=== PATIENT | male | born 1985 | race African-American/Black ===

== ENCOUNTER 2018-07-24 12:54 | Inpatient (IN) | payer SELFPAY ==
[~2018-07-24] VITALS: Ht 172.7 cm; Wt 107.5 kg
[2018-07-24 18:44] LABS: CHLORIDE 102 mEq/L (98-107)
[2018-07-24] MEDS ORDERED: ASPIRIN 325MG EC TABLET PO ONE (18:45)
[2018-07-24 18:56] LABS: BASOPHILS % 0.9 % (0.0-2.0); EOSINOPHILS % 2.5 % (0.0-5.0); HEMATOCRIT. 45.3 % (42.0-52.0); HEMOGLOBIN. 15.2 g/dL (14.0-18.0); LYMPHOCYTES % 34.2 % (20.0-50.0); MEAN CORPUSCULAR HEMOGLOBIN 27.8 pg (28.0-32.0); MEAN CORPUSCULAR VOLUME 83.1 fL (80.0-94.0); MEAN PLATELET VOLUME 9.1 fl (7.4-10.4); MONOCYTES % 9.2 % (2.0-8.0); NEUTROPHILS % 53.2 % (40.0-76.0); PLATELET 252 x1000/uL (130-400); RED BLOOD CELL COUNT 5.45 mill/uL (4.7-6.1); RED CELL DISTRIBUTION WIDTH 14.2 % (11.6-14.6)
[2018-07-24 19:00] LABS: INR 1.1
[2018-07-24] MEDS ORDERED: DOCUSATE SODIUM 100MG CAPSULE PO PRN (21:15)
[2018-07-24] MEDS ORDERED: ONDANSETRON HCL 4MG/2ML INJ IV PRN (21:15)
[2018-07-24] MEDS ORDERED: CLONIDINE 0.1MG TABLET PO PRN (21:15)
[2018-07-24] MEDS ORDERED: HYDROCODONE/ACETAMINOPHEN 5/325MG TABLET PO PRN (21:15)
[2018-07-24] MEDS ORDERED: IPRATROPIUM/ALBUTEROL 0.5-3(2.5)MG/3ML NEB INH PRN (21:15)
[2018-07-24] MEDS ORDERED: MAGNESIUM/ALUMINUM HYDROXIDE/SIMETHICONE 30ML UDC PO PRN (21:15)
[2018-07-24] MEDS ORDERED: ACETAMINOPHEN 325MG TABLET PO PRN (21:15)
[2018-07-24 22:55] VITALS: BP 143/86
[2018-07-24 23:34] LABS: ETHANOL BLOOD < 10 mg/dL
[2018-07-24 23:39] LABS: CREATINE KINASE 193 IU/L (39-308)
[2018-07-24 23:40] LABS: CREATINE KINASE MB FRACTION < 1.0 ng/mL (0.5-3.6)
[2018-07-25 01:18] LABS: HEPATITIS A AB IGM NEGATIVE (NEGATIVE); HEPATITIS B SURFACE ANTIGEN NEGATIVE
[2018-07-25 04:00] VITALS: BP 139/85
[2018-07-25 07:27] LABS: BASOPHILS % 0.7 % (0.0-2.0); HEMATOCRIT. 41.8 % (42.0-52.0); HEMOGLOBIN. 13.9 g/dL (14.0-18.0); LYMPHOCYTES % 34.5 % (20.0-50.0); MEAN CORPUSCULAR HEMOGLOBIN 27.7 pg (28.0-32.0); MEAN CORPUSCULAR VOLUME 82.9 fL (80.0-94.0); MEAN PLATELET VOLUME 9.2 fl (7.4-10.4); MONOCYTES % 10.6 % (2.0-8.0); NEUTROPHILS % 51.2 % (40.0-76.0); PLATELET 241 x1000/uL (130-400); RED BLOOD CELL COUNT 5.04 mill/uL (4.7-6.1); RED CELL DISTRIBUTION WIDTH 14.2 % (11.6-14.6)
[2018-07-25 07:31] LABS: CHLORIDE 102 mEq/L (98-107)
[2018-07-25 07:50] LABS: CREATINE KINASE 183 IU/L (39-308); LDL CHOLESTEROL 92 mg/dL (5-100)
[2018-07-25 07:51] LABS: HDL CHOLESTEROL 39 mg/dL (40-59)
[2018-07-25 07:55] LABS: CREATINE KINASE MB FRACTION < 1.0 ng/mL (0.5-3.6)
[2018-07-25 08:00] VITALS: BP 109/61
[2018-07-25] MEDS ORDERED: ASPIRIN 81MG EC TABLET PO SCH (09:00)
[2018-07-25] MEDS ORDERED: ENOXAPARIN 30MG/0.3ML SYR SUBCUT SCH (09:00)
[2018-07-25 09:42] LABS: *AMPHETAMINES SCREEN URINE NEGATIVE (NEGATIVE); *BARBITURATES SCREEN URINE NEGATIVE (NEGATIVE); *BENZODIAZEPINES SCREEN URINE NEGATIVE (NEGATIVE); *COCAINE SCREEN URINE NEGATIVE (NEGATIVE)
[2018-07-25 09:43] LABS: CANNABINOID URINE SCREEN NEGATIVE (NEGATIVE); METHADONE URINE SCREEN NEGATIVE (NEGATIVE); OPIATES URINE SCREEN NEGATIVE (NEGATIVE); PHENCYCLIDINE URINE SCREEN NEGATIVE (NEGATIVE)
[2018-07-25 15:45] VITALS: BP 138/80
== END 2018-07-25 16:00 | disposition home or self-care (01) | DRG 198 ==
LOC: ER 13:50 → 5WST 19:47 → EDBEDREQ 19:50 → ENRESERV 21:23
PROVIDERS: ADMIT Internal Medicine; ATTEND Internal Medicine
DX: I24.9 Acute ischemic heart disease, unspecified (principal); E66.9 Obesity, unspecified; M54.30 Sciatica, unspecified side; Z68.36 Body mass index [BMI] 36.0-36.9, adult
CPT/HCPCS: 36415; 71045; 80061; 80305; 82550; 82553; 83735; 83880; 84443; 84484; 85379; 86705; 86709; 86803; 87340; 93005; 93306; 93970; 96372; 99285; J1650